=== PATIENT | female | born 1945 | race African-American/Black ===

== ENCOUNTER 2017-03-14 05:34 | Inpatient (IN) | payer OTHER ==
[2017-03-05 12:29] LABS: BASOPHILS 0.2 %; BASOPHILS ABSOLUTE 0.01 10/3/uL (0.0-0.16); EOSINOPHILS 1.2 %; EOSINOPHILS ABSOLUTE 0.05 10/3/uL (0.0-0.53); HEMATOCRIT 37.7 % (36.0-48.0); HEMOGLOBIN 12.1 g/dL (12.0-16.0); LYMPHOCYTES 35.4 %; LYMPHOCYTES ABSOLUTE 1.51 10/3/uL (0.67-4.30); MEAN CORPUS HGB CONC 32.1 g/dL (32.0-36.0); MEAN CORPUSCULAR HEMOGLOB 29.5 pg (26.0-34.0); MEAN PLATELET VOLUME 11.3 fL (9.2-13.0); MONOCYTES 5.4 %; MONOCYTES ABSOLUTE 0.23 10/3/uL (0.21-1.20); NEUTROPHILS 57.8 %; NEUTROPHILS ABSOLUTE 2.47 10/3/uL (2.02-8.40); PLATELET COUNT 235 10/3/uL (150-400); RBC DISTRIBUTION WIDTH 14.9 % (12.0-16.0); WHITE BLOOD CELLS 4.3 10/3/uL (4.5-10.5)
[2017-03-05 12:30] LABS: MANUAL DIFF NO %
[2017-03-05 12:35] LABS: PARTIAL THROMBO TIME 27.2 SEC (22.5-37.2); PROTIME (NOT ORD) 13.5 SEC (12.0-14.5)
[2017-03-05 12:46] LABS: A/G RATIO 1.3 (0.7-1.9); ALBUMIN 3.8 G/DL (3.5-5.0); ALKALINE PHOSPHATASE 75 U/L (45-117); BUN (BLOOD UREA NITROGEN) 17 MG/DL (6-23); CALCIUM, SERUM 9.5 MG/DL (8.5-10.4); CHLORIDE, SERUM 108 MMOL/L (96-112); CO2 (CARBON DIOXIDE) 29 MMOL/L (24-34); CREATININE 1.06 MG/DL (0.55-1.02); GFR AFRICAN AMERICAN 62 ML/MIN (>=60); GFR NON AFRICAN AMERICAN 54 ML/MIN (>=60); GLUCOSE, SERUM 94 MG/DL (60-99); POTASSIUM, SERUM 3.2 MMOL/L (3.5-5.3); SGOT(AST) 11 U/L (5-40); SGPT(ALT) 14 U/L (5-65); SODIUM, SERUM 145 MMOL/L (135-148); TOTAL BILIRUBIN 0.3 MG/DL (0-1.2); TOTAL PROTEIN 6.8 G/DL (6.0-8.5)
--- NOTE | ~2017-03-14 | CN ---
Consultation Report [facility] [address] [place]. [address] NAME: SUMEET CASTRO : 49 STATUS : ADM IN PAT#: [id number] AGE: 71 ADM/REG DATE : 03/14/17 MR#: [id number] REPORT SERV DATE: 03/22/17 DICTATED BY: NOÉ WRIGHT DATE: 03/21/17 REPORT STATUS : Draft TRANSCRIBED BY: MODL DATE: 03/21/17 DATE OF CONSULTATION: 03/21/2017 REASON FOR CONSULTATION: Pancreatic cancer. HISTORY: Ms. 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 She was then taken to pancreaticoduodenectomy (Whipple resection) on 03/14/2017, which was done without complication. She has been having some postoperative fever and postoperative fluid being evaluated by Infectious Disease at this time. Her pathology revealed branch duct-type intraductal papillary mucinous neoplasm, which measured 3.5 cm with a 1.1 cm area of invasive ductal carcinoma. The tumor was well differentiated with negative surgical margin (closest margin 2 mm posteriorly). Ten regional lymph nodes were resected with the specimen and all were negative for carcinoma. Stomach revealed evidence of H pylori gastritis. 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 PAST MEDICAL AND SURGICAL HISTORY: Significant for type 2 diabetes for greater than 20 years. She has had prior hysterectomy, lumpectomy, and rectal lesion excised, which was benign. She has a history of hypertrophic cardiomyopathy with normal left ventricular ejection fraction, hypertension, obesity, and hyperlipidemia. MEDICATIONS: As per medication sheet. ALLERGIES: SHE HAS NO KNOWN DRUG ALLERGIES. SOCIAL HISTORY: She lives in [place], [place]. She is retired. Denies any cigarette smoking in the last 20 years. No alcohol or drug use. No history of pancreatitis. FAMILY HISTORY: Negative for pancreatic cancer. REVIEW OF SYSTEMS: A 13-point review of systems as per HPI. No weight loss prior to surgery. No fever prior to surgery. PHYSICAL EXAMINATION: VITAL SIGNS: Currently afebrile, but T-max 101.3. GENERAL: She is alert, in no acute distress. HEENT: Sclerae anicteric and no jaundice. NECK: No JVD or adenopathy. HEART: Regular rate and rhythm. LUNGS: Clear to auscultation anteriorly. ABDOMEN: Obese. Active bowel sounds. Mild generalized tenderness. No palpable organomegaly. No rebound tenderness. Consultation Report [facility] [id number] [place]. [address] NAME: SUMEET CASTRO : 47 STATUS : ADM IN [facility]#: [id number] AGE: 71 ADM/REG DATE : 03/14/17 MR#: [id number] REPORT SERV DATE: 03/22/17 DICTATED BY: NOÉ WRIGHT DATE: 03/21/17 REPORT STATUS : Draft TRANSCRIBED BY: MALENA DATE: 03/21/17 EXTREMITIES: Without cyanosis, clubbing, or edema. LYMPH NODE SURVEY: Without palpable adenopathy. NEUROLOGIC: Grossly intact. The patient is lying in bed. SKIN: Without jaundice, rash, petechiae, or purpura. LABORATORY DATA: Reviewed. Recent blood cultures: One of two positive for yeast. Infectious Disease solar consultant now following the patient regarding fever. CT scan revealing some postoperative fluid near the surgical site. IMPRESSION: Ms. Castro is a lady with stage I pancreatic cancer, well-differentiated, now post Whipple resection and slowly recovering with febrile complication, possibly active with postop infection. I explained the patient that the patient's of all stages with pancreatic cancer successfully surgically operated are recommended to receive postoperative adjuvant chemotherapy. Her prognosis will be better than average given the well-differentiated tumor. I explained that chemotherapy would be given by vein and by mouth for about six months. She lives in [place], [place] and it would be very difficult for her to try to manage chemotherapy here in [place] and I would recommend when she is discharged that she be referred to a medical oncologist in [place], [place] for discussion of adjuvant chemotherapy. Clearly, no indication of starting adjuvant chemotherapy until after she has full recovery from her surgery and is seen on an outpatient basis. I will plan to be available p.r.n. in the future. MIKAELA/MALENA Noé Wright M.D. / [id number] CC: Justyn Miramontes MD
--- NOTE | ~2017-03-14 | CN ---
Consultation Report [facility] [address] [place]. [address] NAME: SUMEET CARSON : 47 STATUS : ADM IN PAT#: [id number] AGE: 71 ADM/REG DATE : 03/14/17 MR#: [id number] REPORT SERV DATE: 03/23/17 DICTATED BY: YVAN GUERRERO DATE: 03/23/17 REPORT STATUS : Draft TRANSCRIBED BY: MODL DATE: 03/23/17 DATE OF CONSULTATION: REASON FOR CONSULTATION: Acute kidney injury. HISTORY OF PRESENT ILLNESS: This is a very pleasant 71-year-old female patient, who was admitted to Dr. Miramontes's Service. The patient underwent a Whipple procedure on 03/14/2017, for a noted main duct intraductal papillary mucinous neoplasm. Subsequently, her postoperative hospital course has been complicated. On 03/19/2017, consultation was undertaken to Cardiology for noted elevation in her troponin and the patient was initiated on a Cardizem drip for assistance with heart rate control as well as blood pressure control. She was evaluated by Infectious Disease Services for postoperative fever on 03/20/2017, and she has also been evaluated by Dr. Noé Nam of Hematology/Oncology for planning for outpatient treatment post her inpatient hospital stay. The patient's baseline creatinine appears to be around 0.8 to 1.0 historically. 03/20/2016, her creatinine was at 1.06; 03/21/2017, 1.36; 03/22/2017, 1.49; and today at 1.79. She has one set of blood cultures that is positive for Luiza albicans, and she is noted to be positive for an ileus on her KUB this afternoon and has experienced recent nausea and vomiting over the last 24 hours. She has a procalcitonin that is elevated at 1.98, and her intake and output appears incomplete as the patient states she has had urinary output, but there is none listed as it has not closely been tracked. The patient denies chest pain. No shortness of breath. She is chronically nauseous and has had some emesis within the last 12 hours. She does not chronically use nonsteroidal medications and does not appear to be on an LEONELA inhibitor, ARB, or nonsteroidal medications. However, she currently continues on metformin for assistance with blood sugar control. She is awake and alert and sitting at bedside. Her son is present during medical evaluation this afternoon. PAST MEDICAL HISTORY: Positive for recent Whipple procedure as listed in HPI, now admitted to Dr. Justyn Miramontes. History is also positive for postoperative elevation in temperature, postoperative elevation in troponin prompting other referrals as above. Remainder of her history is positive for acute kidney injury with baseline creatinine at 0.8 to 1.0. Remainder of her history is positive for hypertrophic cardiomyopathy, long-standing hypertension, diabetes mellitus, obesity, and hyperlipidemia. REVIEW OF SYSTEMS: Completed. Please see [facility] for pertinent details. SOCIAL HISTORY: Remote history of tobacco use. No EtOH. No illicit drugs. No current tobacco use. She lives in [place], [place]. Retired. 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 FAMILY HISTORY: Negative for chronic or end-stage renal disease. HOME MEDICATIONS: Include the following: Albuterol two puffs inhaled q.6 hours p.r.n., ASA 81 mg daily, Cardura 4 mg p.o. b.i.d., fenofibrate 120 mg daily, Lasix 20 mg daily, Consultation Report [address] [place]. [address] NAME: SUMEET CARSON : 49 STATUS : ADM IN [facility]#: [id number] AGE: 71 ADM/REG DATE : 03/14/17 MR#: [id number] REPORT SERV DATE: 03/23/17 DICTATED BY: YVAN GUERRERO DATE: 03/23/17 REPORT STATUS : Draft TRANSCRIBED BY: MALENA DATE: 03/23/17 Neurontin 600 mg p.o. b.i.d., Lantus 10 units subcu a.m. and at bedtime, metformin 1000 mg p.o. daily, multivitamin one tab p.o. daily, Ditropan 5 mg p.o. b.i.d., Paxil 20 mg p.o. daily, Pravachol 40 mg p.o. at bedtime, Zantac 150 mg p.o. b.i.d., verapamil 240 mg p.o. daily. PHYSICAL EXAMINATION: VITAL SIGNS: Blood pressure 113/61, temperature 97.1, respiratory rate is 17, heart rate is 87 beats per minute and regular. She is on 2 L and 96%. GENERAL: She is an awake, alert, oriented female patient, sitting at bedside during evaluation. HEENT: Normocephalic and atraumatic. Normal ocular movements. No scleral icterus. No conjunctival pallor is appreciated. NECK: Supple without thyromegaly. No JVD or mass. CHEST: Positive S1 and S2. No rubs or gallops. LUNGS: Diminished but normal expansion and effort bilaterally with no rhonchi or wheezes noted on auscultation. GI: Minimal activity as far as bowel sounds. No overt mass or tenderness is noted. A direct visual examination of her surgical site was not undertaken as the patient is bedside and wrapped in blankets. : Deferred. EXTREMITIES: Positive pulses. No clubbing, cyanosis, or edema. NEUROLOGIC: She appears to be grossly intact. SKIN: Warm, dry, and intact to visualized surfaces. No rash, lesions, or ecchymosis. Again, no direct examination of her surgical site is undertaken as she is sitting at bedside and she is of appropriate mood and affect. LABORATORY DATA: Pertinent laboratories and imaging to this evaluation are as follows. One positive blood culture collected on 03/19/2017, reported positive for Luiza albicans. Ileus is noted on KUB this afternoon. Comprehensive metabolic panel: Procalcitonin 1.98, sodium 138, potassium 4.2, chloride 111, CO2 of 18, BUN 28, creatinine 1.76, reflected GFR 34 mL/minute, glucose of 119, calcium 8.3, total protein 5.2, albumin 1.5, globulin 3.7, alk phos 230, ALT and AST 110 and 80 respectively. CBC: White blood cell count of 15.4, RBC 2.54, hemoglobin of 10.4, hematocrit 32.4, platelets at 334. CT of the abdomen and pelvis with contrast on 03/20/2017, identifies nonspecific fluid collection subadjacent to choledochojejunostomy, could represent a seroma, hematoma, or loculated ascites with abscess not being excluded. IMPRESSION AND PLAN: This is a very pleasant 71-year-old female patient, now admitted to Dr. Justyn Miramontes's service. Baseline creatinine appears to be 8.8 to 1.0 with a steady rise in serum creatinine, rising from 03/20/2017, to current level at 1.79 on 03/23/2017. She has had a complicated postoperative course as reflected in her HPI and has now developed nausea and vomiting with an ileus with concomitant positive blood cultures and a postoperative fever with known Whipple procedure as listed above. She continues currently on metformin. I see no other nephrotoxic medications. She did receive contrast on 03/20/2017, for her initial CT imaging. Does not appear she has received any nonsteroidal Consultation Report [facility] [address] [place]. [address] NAME: SUMEET CARSON : 47 STATUS : ADM IN PAT#: [id number] AGE: 71 ADM/REG DATE : 03/14/17 MR#: [id number] REPORT SERV DATE: 03/23/17 DICTATED BY: YVAN GUERRERO DATE: 03/23/17 REPORT STATUS : Draft TRANSCRIBED BY: MALENA DATE: 03/23/17 medications or chronically uses them at home. Her urinary output is said to be reasonable, but is not reflected in the current medical record as it has not closely been followed by the nursing staff. She is somewhat acidotic and her creatinine is elevated. I suspect in review of her current medical records and current inter and postoperative surgical records, that she has suffered an acute tubular necrosis injury secondary to inter and postoperative relative hypotension, plus or minus sepsis, acute tubular necrosis plus or minus volume contraction with recent nausea and vomiting. We will remove metformin. Diuretics appear to have already been removed, but if they are not, would also remove them. No LEONELA inhibitors. No ARB. No nonsteroidal medications. Initiate a quarter normal saline, two amps of bicarb, 75 mL an hour. She has had a recent echocardiogram with an ejection fraction visually estimated at 70%, calculated at 61% with left ventricular diastolic dysfunction with mild left atrial enlargement, moderate concentric left ventricular hypertrophy without significant valvular disease. We will place a quarter normal saline at 100 mL/h. Watch her volume status closely and monitor her laboratories. I suspect that she will be made n.p.o. in light of her ileus that is found this afternoon on her abdominal x-ray in an effort to give her gut some time to rest. We will also complete workup with urinalysis, urine sodium, urine creatinine, and urine urea. Renal ultrasound to examine her renal anatomy. Check postvoid residual to ensure no evidence of urinary retention. Place Claudio catheter should clinical indication be present for need of Claudio catheter for bladder relief. Further modification of treatment plan may be made based on clinical presentation, patient laboratory results, further consultation with renal attending. We appreciate consultation. We are glad to follow this patient with you. DICTATED BY: Kain Mcbride NP JR/MALENA Yvan Guerrero M.D. / [id number] CC: Justyn Miramontes MD
--- NOTE | ~2017-03-14 | CN ---
Consultation Report [facility] [address] [place]. [address] NAME: SUMEET CARSON : 47 STATUS : ADM IN PAT#: [id number] AGE: 71 ADM/REG DATE : 03/14/17 MR#: [id number] REPORT SERV DATE: 03/18/17 DICTATED BY: DATE: REPORT STATUS : Draft TRANSCRIBED BY: MODL DATE: 03/18/17 CONSULTATION DATE OF CONSULTATION: 03/18/2017 REASON FOR CONSULTATION: Hypertension. REQUESTING PHYSICIAN: Dr. Pringle. IDENTIFYING DATA: PRIMARY CARE PHYSICIAN: [facility] [place]. CARDIOVASCULAR: Dr. Alvarez in [place]. HISTORY OF PRESENT ILLNESS: This is a very pleasant 71-year-old black female, who was admitted for a Whipple procedure due to a mass on the head of her pancreas that was consistent with main duct IPMN. She is postop day 5. The patient has a longstanding history of hypertension, and we have been consulted for this problem. The patient does use doxazosin, Lasix, and verapamil at home to manage her hypertension. The patient is currently n.p.o. and we have been asked to assist with this. The patient's history was obtained through careful interview with the patient, her son, coupled with review in [facility] and [employer]. 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 HOME MEDICATIONS: Albuterol two puffs every 6 hours as needed, aspirin 81 mg daily, Cardura 4 mg twice daily, fenofibrate 120 mg daily, Lasix 20 mg daily, gabapentin 600 mg twice daily, Lantus 10 units in the morning and in the evening, Glucophage 1000 mg with breakfast and supper, multivitamin tablet daily, Ditropan 5 mg twice daily, Paxil 20 mg daily, Pravachol 40 mg daily, Zantac 150 mg twice daily, Isoptin 240 mg twice daily. ALLERGIES: THE PATIENT HAS NO KNOWN DRUG ALLERGIES. SOCIAL HISTORY: The patient lives with her son and has other family living close by. 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 She has a remote tobacco history in which she stopped over 40 years ago, occasional alcohol use of wine once or twice every six months, denies illicit drug use. The patient does not have routine exercise. FAMILY HISTORY: The patient's brother had colon cancer. Mother had CVA and hypertension and father had diabetes mellitus type 1. Consultation Report [facility] [address] [place]. [address] NAME: SUMEET CARSON : 47 STATUS : ADM IN PAT#: [id number] AGE: 71 ADM/REG DATE : 03/14/17 MR#: [id number] REPORT SERV DATE: 03/18/17 DICTATED BY: DATE: REPORT STATUS : Draft TRANSCRIBED BY: MODL DATE: 03/18/17 SURGICAL HISTORY: Hysterectomy in , tubal in 1974, left breast lumpectomy which was benign in 2016, colonoscopy and removal of mass in 01/2017, esophageal ultrasound in 11/2016. REVIEW OF SYSTEMS: 10-point review of systems is negative other than HPI. The patient is having severe nausea with emesis. Denies pain at present due to extreme nauseated state. The patient just had NG tube placed for which 4 L of fluid were drained. PHYSICAL EXAMINATION: VITAL SIGNS: Blood pressure is 159/77, heart rate is 114, temp is 97.5, respirations are 18, O2 saturation is 93% on room air. GENERAL: Obese black female, resting in bed, ill appearing. NEURO: Head is atraumatic, normocephalic. The patient is alert and oriented x3, cranial nerves 2 through 12 are grossly intact. NECK: Supple with trachea midline. Neck veins are flat. No obvious thyromegaly or lymphadenopathy. EENT: Sclerae are nonicteric, pupils are equal, round, and reactive to light, extraocular muscles within normal limits. Mucous membranes are moist, nares are patent. Tongue is midline without deviation. CHEST: No pain with palpation. LUNGS: The patient is taking shallow respirations and breath sounds are decreased in the bases. CARDIOVASCULAR: S1 and S2 with no obvious murmurs, rubs, or gallops. Carotids with no obvious bruits. The patient is in tachycardic rhythm. ABDOMEN: Soft and tender. Has rare tympanic bowel sounds. Did not palpate due to extensive incisions and drains. Has a CHRISS drain with large amounts of serosanguineous fluid. EXTREMITIES: Mild bilateral lower extremity nonpitting edema. No clubbing or cyanosis noted. Pedal pulses are present equal bilaterally. SKIN: Warm and moist, no unusual rashes or skin lesions. Normal color and turgor. PSYCH: The patient is anxious and cooperative. LABORATORY DATA: No laboratory data has been drawn today. Labs from 03/17/2017: Sodium was 142, potassium was 3.8, chloride was 109, BUN was 10, creatinine was 0.83, GFR was 83, glucose was 139. Calcium was 8.4, magnesium was 1.8, phosphorus was 2.0. WBC was 8.4, hemoglobin 11.5, hematocrit 35.1, and platelets 242. ASSESSMENT AND PLAN: 1. Hypertension, acute on chronic. The patient is on Cardura and verapamil p.o. as well as metoprolol 5 mg IV q.6 hours. The patient has just been placed n.p.o. The patient's medication regimen has been discussed with Dr. Toribio Bailon. The patient has been placed on scheduled hydralazine as well as p.r.n. hydralazine and the patient will remain on her IV metoprolol. We will consider clonidine patch if the patient's blood pressure is unable to remain controlled. Consultation Report [address] [place]. [address] NAME: SUMEET CARSON : 49 STATUS : ADM IN [facility]#: [id number] AGE: 71 ADM/REG DATE : 03/14/17 MR#: [id number] REPORT SERV DATE: 03/18/17 DICTATED BY: DATE: REPORT STATUS : Draft TRANSCRIBED BY: MODJustin DATE: 03/18/17 2. Diabetes mellitus type 2. The patient is on Lantus insulin and metformin at home. The patient's blood sugars have been well controlled while she has been here with the custom sliding scale that has been provided per surgery. 3. Pancreatic mass. The patient is postop day 5 with a Whipple. 4. Nausea and vomiting. Surgery has ordered NG tube for patient's extensive nausea and vomiting, so the patient is now n.p.o. 4 L was obtained in 10 minutes per NG tube and intermittent suction. We have ordered BMP and Mag to be drawn at 1500 hours and electrolytes to be replaced per electrolyte protocol and notification of GI of the results. 5. Asthma. The patient has p.r.n. nebulizers. We are requesting respiratory therapy to give albuterol treatments on a regular basis until patient is able to ambulate. We would like to take the time to thank you for this consultation. We will continue to follow the patient with you until it is time for her to be discharged. Please let us know if we can be of any further service. SLC/MODL Sadaf Lane NP / [id number] CC: Justyn Miramontes MD
--- NOTE | ~2017-03-14 | OP ---
Record Of Operation [facility] [address] [place]. [address] NAME: SUMEET CARSON : 49 STATUS : ADM IN [facility]#: [id number] AGE: 71 ADM/REG DATE : 03/14/17 MR#: [id number] REPORT SERV DATE: 03/14/17 DICTATED BY: AICHA ROSA DATE: 03/14/17 REPORT STATUS : Draft TRANSCRIBED BY: MODL DATE: 03/14/17 DATE OF PROCEDURE: 03/14/2017 SERVICE: General Surgery. ATTENDING SURGEON: Aicha Rosa M.D., present and scrubbed throughout. PREOPERATIVE DIAGNOSIS: Main duct intraductal papillary mucinous neoplasms. POSTOPERATIVE DIAGNOSIS: Main duct intraductal papillary mucinous neoplasms. PROCEDURE: 1. Pancreaticoduodenectomy. 2. Omental pedicle flap. ANESTHESIA: General endotracheal. ESTIMATED BLOOD LOSS: 100 mL. COMPLICATION: None. SPECIMEN: As above. BRIEF HISTORY: The patient is a very pleasant, 71-year-old, female, who was found to have a 2 cm mass in the head of the pancreas that was worked up and found to be consistent with main duct IPMN. The risks, benefits, and alternatives to resection were explained to the patient in detail. The risks include but not limited to bleeding infection, reoperation, injury to surrounding structures, reactions to anesthetic medications, incisional hernias, perioperative cardiac events, perioperative thromboembolic events, anastomotic leak, and possible . The patient stated clear understanding of all the risks and requested the procedure to be done. DESCRIPTION OF PROCEDURE: After surgical consent was obtained, the patient was transported to the operative theater, onto the operating room table in supine position. General endotracheal anesthesia was administered without difficulty. The patient's abdomen was prepped and draped in standard sterile fashion. Antibiotics were given. A time-out was performed in order to ensure the proper patient and procedure . An incision was made to the upper midline using a scalpel and underlying tissues were divided using electrocautery. The falciform ligament was ligated, divided, and preserved. A Bookwalter device and wound protector were implemented for visualization. The abdomen and liver were inspected for evidence of cancer of which there was none. The gastrocolic ligament was divided using Harmonic Scalpel and the lesser sac was entered. The superior mesenteric vein was identified. A plane was created between the pancreas and the portal vein inferiorly. We then turned our attention to the jerrod hepatis. We divided the gastrohepatic ligament and identified the common hepatic artery. The gastroduodenal artery was elevated and occluded. Occluding this artery did not change blood flow through the common hepatic artery. We then Record Of Operation [facility] [address] [place]. [address] NAME: SUMEET CARSON : 47 STATUS : ADM IN PAT#: [id number] AGE: 71 ADM/REG DATE : 03/14/17 MR#: [id number] REPORT SERV DATE: 03/14/17 DICTATED BY: AICHA ROSA DATE: 03/14/17 REPORT STATUS : Draft TRANSCRIBED BY: MALENA DATE: 03/14/17 doubly ligated and divided the gastroduodenal artery. The portal vein above the pancreas was identified and the plane between the end of the pancreas was connected to the inferior plane and [place] drain was placed. The common bile duct was elevated and divided using electrocautery. The gallbladder was taken off the liver bed using electrocautery. The cystic duct and cystic artery were identified and ligated without difficulty. Prior to dividing any structures, we generously Kocherized the duodenal without difficulty. We divided the left greater omentum on both sides of the stomach and then divided the stomach approximately 1 cm upstream from the pylorus using a ANDREA stapler with a green load. The proximal jejunum and ligament Treitz were identified and then jejunum was divided approximately 20 cm distal to the ligament. The ligament of Treitz and the mesentery of the proximal jejunum were taken down using Harmonic Scalpel. The jejunum was then flipped to the right side of the abdomen along with the duodenum. We then mobilized the uncinate process of the portal vein and in doing so, I preserved the SMA. We divided some branching vessels off the portal vein using clips and the Harmonic Scalpel. The attachments of the uncinate process were divided using the Harmonic Scalpel and the Whipple specimen was removed from the field. The pancreatic and bile duct were marked and showed no evidence of adenocarcinoma. There was what appeared to be a very small islet cell tumor that abutted the margin. We did not feel that she would require any additional resection. At this point, we prepared for reconstruction. We created a hole in the transverse colon mesentery to the right of the middle colic vessels and brought up the jejunum in a retrocolic fashion. We then created an end-to-side two layer pancreaticojejunostomy. The inner layer was done in a torx-ci-hldlrk fashion using interrupted 4-0 PDS sutures. The outer layer was done with 2-0 Ethibond U-stitches with interrupted 3-0 silks. Approximately 10 cm downstream from this, we created an end-to-side hepaticojejunostomy in a wgcd-pp-scmsnq fashion. This was done in a single layer with 4-0 PDS suture. We tacked the jejunum to the transverse colon mesentery and then brought up a loop approximately 45 cm downstream from our biliary anastomosis for gastric jejunostomy. This was created in a stapled voyf-mw-jykh functional end-to-end fashion using a ANDREA 75 stapler. The common enterotomy was closed with TX60B stapler. The greater omentum was then placed over this anastomosis and tacked down to help protect it. We then used the preserved falciform ligament as a vascular omental pedicle flap intact on top our pancreaticojejunostomy using interrupted silk sutures. We placed a 19-Belarusian round Binh drain around our anastomoses. We irrigated out the abdomen with 4 L of sterile saline. There was no additional bleeding and no evidence of bile leakage from our hepaticojejunostomy. This only closed actually the most superior aspect with interrupted #1 Vicryl suture and then running #1 looped PDS. The subcutaneous tissues above the fascia were irrigated out with the pulse lavage system times 2.5 liters and the skin was closed with stapling device. The drain was secured at the skin level with nylon suture and the wounds were dressed in standard fashion. At the end of the procedure the instrument, lap, and needle counts were all correct. The patient was awoke from awoke having tolerated procedure without difficulty and returned to the PACU in stable condition. JIE/MATTHEWL Aicha Rosa MD Record Of Operation [address] [place]. [address] NAME: SUMEET CARSON : 49 STATUS : ADM IN PAT#: [id number] AGE: 71 ADM/REG DATE : 03/14/17 MR#: [id number] REPORT SERV DATE: 03/14/17 DICTATED BY: AICHA ROSA DATE: 03/14/17 REPORT STATUS : Draft TRANSCRIBED BY: MALENA DATE: 03/14/17 / [id number] CC: Aicha Rosa MD
--- NOTE | ~2017-03-14 | CN ---
Consultation Report [facility] [address] [place]. [address] NAME: SUMEET CASTRO : 49 STATUS : ADM IN PAT#: [id number] AGE: 71 ADM/REG DATE : 03/14/17 MR#: [id number] REPORT SERV DATE: 03/19/17 DICTATED BY: DATE: REPORT STATUS : Draft TRANSCRIBED BY: MODL DATE: 03/19/17 CONSULTATION DATE OF CONSULTATION: 03/19/2017 CHIEF COMPLAINT/REASON FOR CONSULT: Elevated cardiac biomarker. PRIMARY ENERGY SALES CONSULTANT: Dr. Villasenor at [facility]. HISTORY OF PRESENT ILLNESS: Mrs. 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 Her postoperative course has most recently been complicated by fevers up to 102.7, and tachycardia, as well as poorly controlled hypertension. For unclear reasons cardiac troponin was checked, as the patient is not having any chest pain or shortness of breath, and cardiac troponin was found to be between 0.44 and 0.68. The patient denies any chest pain or shortness of breath. She has had increased heart rates with adjustment of her antihypertensive medications. Her verapamil was stopped and she was placed on Norvasc and metoprolol with suboptimal blood pressure control and blood pressures up to 155/68. Her urine output has decreased and she has been requiring increased fluid bolus. She has also had severe nausea and vomiting. PAST MEDICAL HISTORY: 1. Hypertrophic cardiomyopathy, with hyperdynamic left ventricular systolic function, and a resting left ventricular outflow tract gradient of 22 mmHg, which increased to 40 mmHg with Valsalva. 2. Longstanding hypertension. 3. Diabetes mellitus. 4. Obesity. 5. Hyperlipidemia. SOCIAL HISTORY: The patient is . She does not smoke, drink, or use extracurricular drugs. FAMILY HISTORY: Significant for a sister with cardiomyopathy. REVIEW OF SYSTEMS: All systems were reviewed and is negative except for dictated in HPI. ALLERGIES: NO KNOWN DRUG ALLERGIES. CURRENT INPATIENT MEDICATIONS: 1. Aspirin 81 mg p.o. daily. 2. Ditropan 5 mg p.o. daily. 3. Glucophage. Consultation Report [facility] [address] [place]. [address] NAME: SUMEET CASTRO : 47 STATUS : ADM IN PAT#: [id number] AGE: 71 ADM/REG DATE : 03/14/17 MR#: [id number] REPORT SERV DATE: 03/19/17 DICTATED BY: DATE: REPORT STATUS : Draft TRANSCRIBED BY: MALENA DATE: 03/19/17 4. Heparin. 5. Lofibra. 6. Lopressor 25 mg p.o. b.i.d. 7. Neurontin 600 mg p.o. twice per day. 8. Norvasc 10 mg p.o. daily. 9. Novolin. 10.Paxil 20 mg p.o. daily. 11.Pepcid. 12.Pravachol 40 mg p.o. daily. 13.Proventil. 14.Theragran. PHYSICAL EXAMINATION: VITAL SIGNS: Temperature T-max 102.7 pulse is ranged between 98 and 120 beats per minute, blood pressures ranged between 137/60 to 173/75. GENERAL: Mrs. Castro is a 71-year-old female. She is in no distress. NECK: No jugular venous distention. I could not appreciate cardiac bruits. HEART: Tachycardic, soft S1 and S2. There is a 3/6 systolic murmur that is best appreciated at the left sternal border. LUNGS: Clear to auscultation in all conway. ABDOMEN: Obese. Bowel sounds are markedly diminished. There are tender in all quadrants. EXTREMITIES: Warm and well perfused. There is no pitting edema. MUSCULOSKELETAL: No clubbing or cyanosis of the digits. LABORATORY DATA: Laboratory results note a hemoglobin of 11.4, hematocrit of 35.8, platelet count of 219. Procalcitonin is 2.4, potassium 4.1, BUN 18, creatinine 1.25, glucose is 153, troponins range between 0.44 and 0.68. The patient has many bacteria noted on UA. Leukocyte esterase and nitrates were negative. IMPRESSION REPORT AND PLAN: 1. Positive troponin likely secondary to demand in the setting of early sepsis. 2. History of hypertrophic obstructive cardiomyopathy via echocardiogram in September 2016. 3. Hypertension, poorly controlled. 4. Diabetes mellitus. 5. History of pancreatic mass, status post resection on 03/14/2017. 6. Obesity. 7. Hyperlipidemia. RECOMMENDATIONS: 1. Check echocardiogram to verify that the patient's left ventricular systolic function is still preserved. 2. We would recommend diltiazem drip for better blood pressure and heart rate control, especially in the setting of her hypertrophic cardiomyopathy. When she is no longer taking an NG tube, we would recommend her home verapamil with up titration. 3. I would increase her baseline dose of metoprolol at this time. Consultation Report [facility] [address] [place]. [address] NAME: SUMEET CASTRO : 47 STATUS : ADM IN PAT#: [id number] AGE: 71 ADM/REG DATE : 03/14/17 MR#: [id number] REPORT SERV DATE: 03/19/17 DICTATED BY: DATE: REPORT STATUS : Draft TRANSCRIBED BY: MODL DATE: 03/19/17 4. We would treat underlying conditions and evaluate and treat sepsis. 5. Additional recommendations pending clinical course. It has been my pleasure to participate in her care. SELENE/MALENA Rosie Dorado M.D. / [id number] CC: Justyn Miramontes MD
--- NOTE | ~2017-03-14 | CN ---
Consultation Report [facility] [address] [place]. [address] NAME: SUMEET CARSON : 49 STATUS : ADM IN PAT#: [id number] AGE: 71 ADM/REG DATE : 03/14/17 MR#: [id number] REPORT SERV DATE: 03/20/17 DICTATED BY: ARMANDO BREEN DATE: 03/20/17 REPORT STATUS : Draft TRANSCRIBED BY: MODL DATE: 03/20/17 INFECTIOUS DISEASE CONSULTATION DATE OF CONSULTATION: REASON FOR CONSULTATION: Fever. HISTORY OF PRESENT ILLNESS: A 71-year-old lady with past medical history of diabetes, hyperlipidemia, hypertension, hypertrophic cardiomyopathy, asthma, was found to have an intraductal papillary mucinous neoplasm in 11/2016. In December, she had a robotic low anterior resection for benign rectal or sigmoid lesion. This was done at [facility]. The patient states there are no complications after that. She had followups with her surgeon, and according to a note from the 02/20/2017, the patient had no acute complaints. The plan was to do a resection of this pancreas mass. At that time, it looks like she was taking erythromycin and neomycin or at least that was on the list of medications. She was admitted here electively on the 03/14/2017, but there is no antibiotic on this admission list. She had a pancreaticoduodenectomy and hepaticojejunostomy on the 03/14/2017. The patient received Zosyn after the surgery through the 03/19/2017. According to the progress notes, she did okay until 03/18/2017, although the son mentions that she had some confusion postop. On 03/18/2017, the abdomen was distended. She had nausea and vomiting. She was tachycardic, and then later, she developed a high fever up to 103, an NG tube was placed. A Claudio catheter that was just removed the day before was reinserted. Yesterday, she was transferred to ICU. Blood cultures were done and Levaquin was ordered, but it appears was not given. Lab work showed a procalcitonin of 2.4 and creatinine 1.0. Urinalysis with positive urobilinogen and bacteria, but no white blood cells. Chest x-ray with left base effusion/atelectasis. She spiked another fever around midnight last night, but today she feels better and she is afebrile. She had a CT scan of the abdomen and pelvis that shows a small fluid collection at choledochojejunostomy side about 3.2 x 5.3 x 2.8 cm. Also some small pleural effusions and some mild small bowel loop dilatation. REVIEW OF SYSTEMS: She reports occasional cough, but she has asthma. No acute shortness of breath. She does have some incisional abdominal pain. She states that she had some kind of bowel movement yesterday. No vomiting or nausea since the NG tube was inserted. She has a Claudio catheter. No acute joint pains or skin lesions or headaches. PAST MEDICAL HISTORY: As I mentioned above plus hysterectomy, lumpectomy, and a surgery for rectal lesion. Consultation Report [facility] [id number] [place]. [address] NAME: SUMEET CARSON : 49 STATUS : ADM IN [facility]#: [id number] AGE: 71 ADM/REG DATE : 03/14/17 MR#: [id number] REPORT SERV DATE: 03/20/17 DICTATED BY: ARMANDO BREEN DATE: 03/20/17 REPORT STATUS : Draft TRANSCRIBED BY: MALENA DATE: 03/20/17 SOCIAL HISTORY: Remote smoking. She is apparently retired. FAMILY HISTORY: Stroke, diabetes, and hypertension. ALLERGIES: NONE. MEDICATIONS ON ADMISSION: Aspirin, Cardura, fenofibrate, Lasix, gabapentin, insulin, metformin, multivitamin, oxybutynin, Paxil, pravastatin, Zantac, and verapamil extended release. PHYSICAL EXAMINATION: GENERAL: She is alert and awake. She has an NG tube in. HEENT: Oral mucosa with mild erythema. No lesions were seen. LUNGS: With decreased sounds, especially in the bases. No wheezes, rhonchi, or rales. HEART: Regular rhythm. ABDOMEN: With positive bowel sounds, compressible, but nontender to palpation, although she had pain meds. CHRISS drain with small amount of serosanguineous fluid. SKIN: No sacral decubitus that I can see. Feet without lesions. ASSESSMENT AND PLAN: Fever, day four of five post Whipple procedure for pancreatic mucinous neoplasm. A CT scan showed some fluid around the choledochojejunostomy site. The CHRISS drain left from surgery has only small amount of serosanguineous fluid today, had larger output in the last 48 hours. Differential diagnosis would include a postop seroma or hematoma versus an infected fluid collection. She has some bacteria in the urine, but no significant inflammation, so no urine culture was done. She already received Zosyn for about five days and she is actually off antibiotics now. The abdominal distention and vomiting have improved. The CHRISS drainage amount has decreased. The temperature is better today, so far. However, she started running a fever again. Asked to repeat blood cultures and check a CHRISS drainage culture and restart the antibiotic with Zosyn. We will also follow up the liver enzymes and procalcitonin. I discussed with the patient and the nurse. PRERNA/MALENA Armando Breen M.D. / [id number] Consultation Report [address] [place]. [address] NAME: SUMEET CARSON : 49 STATUS : ADM IN [facility]#: [id number] AGE: 71 ADM/REG DATE : 03/14/17 MR#: [id number] REPORT SERV DATE: 03/20/17 DICTATED BY: ARMANDO BREEN DATE: 03/20/17 REPORT STATUS : Draft TRANSCRIBED BY: MALENA DATE: 03/20/17 CC: Justyn Miramontes MD NO PCP
--- NOTE | ~2017-03-14 | DS ---
Discharge Summary [facility] [address] [facility] [place]. [address] NAME: SUMEET CARSON : 49 STATUS : DIS IN PAT#: [id number] AGE: 71 ADM/REG DATE : 03/14/17 MR#: [id number] REPORT SERV DATE: 04/12/17 DICTATED BY: AICHA ROSA DATE: 04/11/17 REPORT STATUS : Draft TRANSCRIBED BY: MODL DATE: 04/11/17 ADMISSION DATE: 03/14/2017 DISCHARGE DATE: 03/30/2017 DIAGNOSIS: Main duct intraductal papillary mucinous neoplasm with adenocarcinoma. PROCEDURE: Whipple. BRIEF HISTORY: The patient is a 71-year-old female who underwent a Whipple for a main duct IPMN at the head of the pancreas. Pathology revealed evidence of adenocarcinoma. HOSPITAL COURSE: Her hospital course was prolonged and complicated by multiple issues including fungemia, acute renal insufficiency, and significant hypertension. The patient was ultimately recovered from these issues and discharged home in a stable condition. DISCHARGE INSTRUCTIONS: The patient is to follow up with me in 2 weeks. The remainder of the discharge instructions can be found on the chart. DICTATED BY: MD JIE Laureano/MALENA Aicha Rosa MD / [id number] CC: Aicha Rosa MD
[~2017-03-14 05:34] MED LIST: ASAB PO; CARDU4 PO; DITRO5 PO; FENOGLIDE120 MG PO; GLUCOPHAGE1000 MG PO; ISOPTIN SR240 MG PO; L20 PO; LANTUS SC; MULTIPLE VIT PO; NEUR600 PO; PAX20 PO; PRAVACHOL40 MG PO; VENTOLIN HFA INH; ZANTAC 150 PO
[2017-03-15 05:33] LABS: BASOPHILS 0 %; EOSINOPHILS 0 %; HEMATOCRIT 36.8 % (36.0-48.0); HEMOGLOBIN 12.2 g/dL (12.0-16.0); IMMATURE GRANULOCYTES 0.2 %; IMMATURE GRANULOCYTES ABSOLUTE 0.02 10/3/uL (0.0-0.11); LYMPHOCYTES 10.1 %; LYMPHOCYTES ABSOLUTE 1.15 10/3/uL (0.67-4.30); MEAN CORPUS HGB CONC 33.2 g/dL (32.0-36.0); MEAN CORPUSCULAR HEMOGLOB 30.4 pg (26.0-34.0); MEAN CORPUSCULAR VOLUME 91.8 fL (80-100); MEAN PLATELET VOLUME 11.1 fL (9.2-13.0); MONOCYTES 7.9 %; NEUTROPHILS 81.8 %; NEUTROPHILS ABSOLUTE 9.27 10/3/uL (2.02-8.40); PLATELET COUNT 247 10/3/uL (150-400); RBC DISTRIBUTION WIDTH 15.4 % (12.0-16.0); RED CELL COUNT 4.01 10/6/uL (4.0-5.6)
[2017-03-15 05:36] LABS: MANUAL DIFF NO %; WHITE BLOOD CELLS 11.3 10/3/uL (4.5-10.5)
[2017-03-15 05:50] LABS: A/G RATIO 0.8 (0.7-1.9); ALBUMIN 2.8 G/DL (3.5-5.0); ALKALINE PHOSPHATASE 50 U/L (45-117); BUN (BLOOD UREA NITROGEN) 16 MG/DL (6-23); CALCIUM, SERUM 8.9 MG/DL (8.5-10.4); CHLORIDE, SERUM 109 MMOL/L (96-112); CO2 (CARBON DIOXIDE) 27 MMOL/L (24-34); CREATININE 1.03 MG/DL (0.55-1.02); GFR AFRICAN AMERICAN 64 ML/MIN (>=60); GFR NON AFRICAN AMERICAN 55 ML/MIN (>=60); GLOBULIN 3.3 G/DL (2.5-4.1); GLUCOSE, SERUM 128 MG/DL (60-99); POTASSIUM, SERUM 3.8 MMOL/L (3.5-5.3); SGOT(AST) 91 U/L (5-40); SGPT(ALT) 110 U/L (5-65); SODIUM, SERUM 143 MMOL/L (135-148); TOTAL BILIRUBIN 0.5 MG/DL (0-1.2); TOTAL PROTEIN 6.1 G/DL (6.0-8.5)
[2017-03-16 04:58] LABS: BASOPHILS 0.2 %; BASOPHILS ABSOLUTE 0.02 10/3/uL (0.0-0.16); EOSINOPHILS 0.1 %; EOSINOPHILS ABSOLUTE 0.01 10/3/uL (0.0-0.53); HEMATOCRIT 38.5 % (36.0-48.0); HEMOGLOBIN 12.2 g/dL (12.0-16.0); IMMATURE GRANULOCYTES 0.2 %; IMMATURE GRANULOCYTES ABSOLUTE 0.02 10/3/uL (0.0-0.11); LYMPHOCYTES 9.9 %; LYMPHOCYTES ABSOLUTE 1.14 10/3/uL (0.67-4.30); MANUAL DIFF NO %; MEAN CORPUS HGB CONC 31.7 g/dL (32.0-36.0); MEAN CORPUSCULAR HEMOGLOB 30.1 pg (26.0-34.0); MEAN CORPUSCULAR VOLUME 95.1 fL (80-100); MONOCYTES 7.6 %; MONOCYTES ABSOLUTE 0.87 10/3/uL (0.21-1.20); PLATELET COUNT 242 10/3/uL (150-400); RBC DISTRIBUTION WIDTH 16.1 % (12.0-16.0); RED CELL COUNT 4.05 10/6/uL (4.0-5.6); WHITE BLOOD CELLS 11.5 10/3/uL (4.5-10.5)
[2017-03-16 05:23] LABS: A/G RATIO 0.7 (0.7-1.9); ALBUMIN 2.4 G/DL (3.5-5.0); ALKALINE PHOSPHATASE 59 U/L (45-117); BUN (BLOOD UREA NITROGEN) 13 MG/DL (6-23); CHLORIDE, SERUM 108 MMOL/L (96-112); CO2 (CARBON DIOXIDE) 23 MMOL/L (24-34); CREATININE 0.88 MG/DL (0.55-1.02); GFR AFRICAN AMERICAN 78 ML/MIN (>=60); GFR NON AFRICAN AMERICAN 67 ML/MIN (>=60); GLOBULIN 3.3 G/DL (2.5-4.1); GLUCOSE, SERUM 131 MG/DL (60-99); POTASSIUM, SERUM 3.9 MMOL/L (3.5-5.3); SGOT(AST) 45 U/L (5-40); SGPT(ALT) 72 U/L (5-65); SODIUM, SERUM 139 MMOL/L (135-148); TOTAL BILIRUBIN 0.7 MG/DL (0-1.2); TOTAL PROTEIN 5.7 G/DL (6.0-8.5)
[2017-03-16 05:24] LABS: PHOSPHORUS, SERUM 1.6 MG/DL (2.5-4.5)
[2017-03-17 05:47] LABS: BASOPHILS 0.2 %; BASOPHILS ABSOLUTE 0.02 10/3/uL (0.0-0.16); EOSINOPHILS 0.6 %; EOSINOPHILS ABSOLUTE 0.05 10/3/uL (0.0-0.53); HEMATOCRIT 35.1 % (36.0-48.0); HEMOGLOBIN 11.5 g/dL (12.0-16.0); IMMATURE GRANULOCYTES 0.2 %; IMMATURE GRANULOCYTES ABSOLUTE 0.02 10/3/uL (0.0-0.11); LYMPHOCYTES 13.3 %; LYMPHOCYTES ABSOLUTE 1.12 10/3/uL (0.67-4.30); MANUAL DIFF NO %; MEAN CORPUS HGB CONC 32.8 g/dL (32.0-36.0); MEAN CORPUSCULAR HEMOGLOB 29.9 pg (26.0-34.0); MEAN CORPUSCULAR VOLUME 91.4 fL (80-100); MEAN PLATELET VOLUME 11.5 fL (9.2-13.0); MONOCYTES 7.7 %; MONOCYTES ABSOLUTE 0.65 10/3/uL (0.21-1.20); NEUTROPHILS ABSOLUTE 6.58 10/3/uL (2.02-8.40); PLATELET COUNT 242 10/3/uL (150-400); RBC DISTRIBUTION WIDTH 15.2 % (12.0-16.0); RED CELL COUNT 3.84 10/6/uL (4.0-5.6); WHITE BLOOD CELLS 8.4 10/3/uL (4.5-10.5)
[2017-03-17 06:07] LABS: BUN (BLOOD UREA NITROGEN) 10 MG/DL (6-23); CALCIUM, SERUM 8.4 MG/DL (8.5-10.4); CHLORIDE, SERUM 109 MMOL/L (96-112); CO2 (CARBON DIOXIDE) 26 MMOL/L (24-34); CREATININE 0.83 MG/DL (0.55-1.02); GFR AFRICAN AMERICAN 83 ML/MIN (>=60); GFR NON AFRICAN AMERICAN 72 ML/MIN (>=60); GLUCOSE, SERUM 139 MG/DL (60-99); POTASSIUM, SERUM 3.8 MMOL/L (3.5-5.3); SODIUM, SERUM 142 MMOL/L (135-148)
[2017-03-18 17:31] LABS: BUN (BLOOD UREA NITROGEN) 13 MG/DL (6-23); CALCIUM, SERUM 9.1 MG/DL (8.5-10.4); CHLORIDE, SERUM 111 MMOL/L (96-112); CO2 (CARBON DIOXIDE) 25 MMOL/L (24-34); CREATININE 1.01 MG/DL (0.55-1.02); GFR AFRICAN AMERICAN 66 ML/MIN (>=60); GFR NON AFRICAN AMERICAN 57 ML/MIN (>=60); GLUCOSE, SERUM 147 MG/DL (60-99); POTASSIUM, SERUM 4.3 MMOL/L (3.5-5.3); SODIUM, SERUM 144 MMOL/L (135-148)
[2017-03-18 21:31] LABS: BUN (BLOOD UREA NITROGEN) 14 MG/DL (6-23); CALCIUM, SERUM 8.7 MG/DL (8.5-10.4); CHLORIDE, SERUM 115 MMOL/L (96-112); CREATININE 1.01 MG/DL (0.55-1.02); GFR AFRICAN AMERICAN 66 ML/MIN (>=60); GFR NON AFRICAN AMERICAN 57 ML/MIN (>=60); GLUCOSE, SERUM 118 MG/DL (60-99); POTASSIUM, SERUM 4.7 MMOL/L (3.5-5.3); SODIUM, SERUM 141 MMOL/L (135-148)
[2017-03-18 21:32] LABS: CO2 (CARBON DIOXIDE) 18 MMOL/L (24-34); TROPONIN I 0.44 NG/ML (<0.05)
[2017-03-19 07:28] LABS: BUN (BLOOD UREA NITROGEN) 18 MG/DL (6-23); CALCIUM, SERUM 8.3 MG/DL (8.5-10.4); CHLORIDE, SERUM 115 MMOL/L (96-112); CO2 (CARBON DIOXIDE) 22 MMOL/L (24-34); CREATININE 1.25 MG/DL (0.55-1.02); GFR AFRICAN AMERICAN 51 ML/MIN (>=60); GFR NON AFRICAN AMERICAN 44 ML/MIN (>=60); GLUCOSE, SERUM 153 MG/DL (60-99); PHOSPHORUS, SERUM 2.9 MG/DL (2.5-4.5); POTASSIUM, SERUM 4.1 MMOL/L (3.5-5.3); SODIUM, SERUM 145 MMOL/L (135-148)
[2017-03-19 07:29] LABS: TROPONIN I 0.67 NG/ML (<0.05)
[2017-03-19 07:29] LABS: HEMATOCRIT 35.8 % (36.0-48.0); HEMOGLOBIN 11.4 g/dL (12.0-16.0); MEAN CORPUS HGB CONC 31.8 g/dL (32.0-36.0); MEAN CORPUSCULAR HEMOGLOB 29.9 pg (26.0-34.0); MEAN PLATELET VOLUME 11.6 fL (9.2-13.0); PLATELET COUNT 219 10/3/uL (150-400); RED CELL COUNT 3.81 10/6/uL (4.0-5.6); WHITE BLOOD CELLS 9.3 10/3/uL (4.5-10.5)
[2017-03-19 07:31] LABS: MANUAL DIFF YES %
[2017-03-19 08:01] LABS: BAND NEUTROPHILS 6 %; LYMPHOCYTES 5 %; LYMPHOCYTES ABSOLUTE (CALC) 0.47 10/3/uL (0.67-4.30); MONOCYTES 3 %; MONOCYTES ABSOLUTE (CALC) 0.28 10/3/uL (0.21-1.20); NEUTROPHILS ABSOLUTE (CALC) 8.56 10/3/uL (2.02-8.40); PLATELET ESTIMATE ADQ (ADEQUATE); RBC MORPHOLOGY NORM (NORMAL); SEGMENTED NEUTROPHIL (0) 86 %; TOTAL NUCLEATED CELLS 100
[2017-03-19 09:17] LABS: DIRECT BILIRUBIN 1.2 MG/DL (0.0-0.4); INDIRECT BILIRUBIN(NOT ORDER) 0.9 MG/DL (0.1-0.9)
[2017-03-19 09:18] LABS: TOTAL BILIRUBIN 2.1 MG/DL (0-1.2)
[2017-03-19 10:05] LABS: TROPONIN I 0.68 NG/ML (<0.05)
[2017-03-19 11:25] LABS: PROCALCITONIN 2.41 ng/mL (<0.5)
[2017-03-19 12:29] LABS: WBC (NOT ORDERED) (RFLEX) 0 (0-5)
[2017-03-19 12:45] LABS: ASCORBIC ACID (UR NOT ORDER) NEG (NEG); BILIRUBIN, URINE SMALL (NEG); KETONE, URINE NEGATIVE (NEG); LEUKOCYTE ESTERASE(NOT OR NEG (NEG)
[2017-03-20 05:55] LABS: BASOPHILS 0.1 %; BASOPHILS ABSOLUTE 0.01 10/3/uL (0.0-0.16); EOSINOPHILS 0.3 %; EOSINOPHILS ABSOLUTE 0.03 10/3/uL (0.0-0.53); HEMATOCRIT 33.6 % (36.0-48.0); HEMOGLOBIN 10.8 g/dL (12.0-16.0); IMMATURE GRANULOCYTES 0.3 %; IMMATURE GRANULOCYTES ABSOLUTE 0.03 10/3/uL (0.0-0.11); LYMPHOCYTES ABSOLUTE 0.45 10/3/uL (0.67-4.30); MEAN CORPUS HGB CONC 32.1 g/dL (32.0-36.0); MEAN CORPUSCULAR HEMOGLOB 29.9 pg (26.0-34.0); MEAN CORPUSCULAR VOLUME 93.1 fL (80-100); MEAN PLATELET VOLUME 11.3 fL (9.2-13.0); MONOCYTES ABSOLUTE 0.63 10/3/uL (0.21-1.20); NEUTROPHILS 87.3 %; NEUTROPHILS ABSOLUTE 7.82 10/3/uL (2.02-8.40); PLATELET COUNT 233 10/3/uL (150-400); RBC DISTRIBUTION WIDTH 16.2 % (12.0-16.0); RED CELL COUNT 3.61 10/6/uL (4.0-5.6)
[2017-03-20 05:56] LABS: MANUAL DIFF NO %
[2017-03-20 06:11] LABS: BUN (BLOOD UREA NITROGEN) 17 MG/DL (6-23); CALCIUM, SERUM 8.6 MG/DL (8.5-10.4); CHLORIDE, SERUM 116 MMOL/L (96-112); CO2 (CARBON DIOXIDE) 22 MMOL/L (24-34); CREATININE 1.06 MG/DL (0.55-1.02); GFR AFRICAN AMERICAN 62 ML/MIN (>=60); GFR NON AFRICAN AMERICAN 54 ML/MIN (>=60); GLUCOSE, SERUM 131 MG/DL (60-99); PHOSPHORUS, SERUM 2.2 MG/DL (2.5-4.5); POTASSIUM, SERUM 3.8 MMOL/L (3.5-5.3); SGOT(AST) 55 U/L (5-40); SGPT(ALT) 74 U/L (5-65); SODIUM, SERUM 145 MMOL/L (135-148); TOTAL PROTEIN 5.4 G/DL (6.0-8.5)
[2017-03-20 06:12] LABS: A/G RATIO 0.5 (0.7-1.9); ALBUMIN 1.8 G/DL (3.5-5.0); ALKALINE PHOSPHATASE 222 U/L (45-117); GLOBULIN 3.6 G/DL (2.5-4.1); TOTAL BILIRUBIN 1.6 MG/DL (0-1.2)
[2017-03-20 11:19] LABS: CPK 175 U/L (0-200)
[2017-03-20 11:20] LABS: CK-MB < 0.5 NG/ML; TROPONIN I 0.42 NG/ML (<0.05)
[2017-03-20 19:40] LABS: ALBUMIN 1.9 G/DL (3.5-5.0); DIRECT BILIRUBIN 1.3 MG/DL (0.0-0.4); INDIRECT BILIRUBIN(NOT ORDER) 0.4 MG/DL (0.1-0.9); TOTAL BILIRUBIN 1.7 MG/DL (0-1.2); TOTAL PROTEIN 5.8 G/DL (6.0-8.5)
[2017-03-21 04:19] LABS: BASOPHILS 0.2 %; BASOPHILS ABSOLUTE 0.02 10/3/uL (0.0-0.16); EOSINOPHILS 0.3 %; EOSINOPHILS ABSOLUTE 0.03 10/3/uL (0.0-0.53); HEMATOCRIT 33.4 % (36.0-48.0); HEMOGLOBIN 10.7 g/dL (12.0-16.0); IMMATURE GRANULOCYTES 0.6 %; IMMATURE GRANULOCYTES ABSOLUTE 0.07 10/3/uL (0.0-0.11); LYMPHOCYTES 5.9 %; LYMPHOCYTES ABSOLUTE 0.65 10/3/uL (0.67-4.30); MEAN CORPUSCULAR HEMOGLOB 29.7 pg (26.0-34.0); MEAN CORPUSCULAR VOLUME 92.8 fL (80-100); MEAN PLATELET VOLUME 11.2 fL (9.2-13.0); MONOCYTES 11.7 %; MONOCYTES ABSOLUTE 1.29 10/3/uL (0.21-1.20); NEUTROPHILS 81.3 %; PLATELET COUNT 248 10/3/uL (150-400); RBC DISTRIBUTION WIDTH 16.3 % (12.0-16.0); WHITE BLOOD CELLS 11.1 10/3/uL (4.5-10.5)
[2017-03-21 04:20] LABS: MANUAL DIFF NO %
[2017-03-21 04:34] LABS: ALBUMIN 1.7 G/DL (3.5-5.0); BUN (BLOOD UREA NITROGEN) 20 MG/DL (6-23); CALCIUM, SERUM 8.3 MG/DL (8.5-10.4); CHLORIDE, SERUM 117 MMOL/L (96-112); CO2 (CARBON DIOXIDE) 22 MMOL/L (24-34); CREATININE 1.26 MG/DL (0.55-1.02); DIRECT BILIRUBIN 1.2 MG/DL (0.0-0.4); GFR AFRICAN AMERICAN 50 ML/MIN (>=60); GFR NON AFRICAN AMERICAN 43 ML/MIN (>=60); GLUCOSE, SERUM 143 MG/DL (60-99); INDIRECT BILIRUBIN(NOT ORDER) 0.4 MG/DL (0.1-0.9); SGOT(AST) 80 U/L (5-40); SGPT(ALT) 91 U/L (5-65); SODIUM, SERUM 146 MMOL/L (135-148); TOTAL BILIRUBIN 1.6 MG/DL (0-1.2); TOTAL PROTEIN 5.3 G/DL (6.0-8.5)
[2017-03-21 04:35] LABS: ALKALINE PHOSPHATASE 224 U/L (45-117)
[2017-03-21 06:13] LABS: PROCALCITONIN 2.09 ng/mL (<0.5)
[2017-03-21 09:12] LABS: HEPATITIS B SURFACE ANTIGEN NON-REACTIVE (NON-REACT)
[2017-03-21 09:13] LABS: HEP B SUR AB QUANTITATIVE < 3.10 mIU/mL (>=10.0)
[2017-03-21 09:17] LABS: HEPATITIS B CORE AB IGM NON-REACTIVE (NON-REAC); HEPATITIS C ANTIBODY NON-REACTIVE (NON-REACT)
[2017-03-21 09:19] LABS: HEP A ANTIBODY IGM NON-REACTIVE (NON-REACT)
[2017-03-22 05:09] LABS: BASOPHILS 0.3 %; BASOPHILS ABSOLUTE 0.04 10/3/uL (0.0-0.16); EOSINOPHILS 0.2 %; EOSINOPHILS ABSOLUTE 0.03 10/3/uL (0.0-0.53); HEMOGLOBIN 11.2 g/dL (12.0-16.0); IMMATURE GRANULOCYTES 0.6 %; IMMATURE GRANULOCYTES ABSOLUTE 0.09 10/3/uL (0.0-0.11); LYMPHOCYTES 6.2 %; MEAN CORPUSCULAR HEMOGLOB 29.3 pg (26.0-34.0); MEAN CORPUSCULAR VOLUME 91.6 fL (80-100); MEAN PLATELET VOLUME 11.8 fL (9.2-13.0); MONOCYTES 9.1 %; MONOCYTES ABSOLUTE 1.31 10/3/uL (0.21-1.20); NEUTROPHILS 83.6 %; NEUTROPHILS ABSOLUTE 12.09 10/3/uL (2.02-8.40); RBC DISTRIBUTION WIDTH 16.5 % (12.0-16.0); RED CELL COUNT 3.82 10/6/uL (4.0-5.6); WHITE BLOOD CELLS 14.5 10/3/uL (4.5-10.5)
[2017-03-22 05:11] LABS: MANUAL DIFF NO %; PLATELET COUNT 340 10/3/uL (150-400)
[2017-03-22 05:19] LABS: A/G RATIO 0.4 (0.7-1.9); ALBUMIN 1.7 G/DL (3.5-5.0); ALKALINE PHOSPHATASE 231 U/L (45-117); BUN (BLOOD UREA NITROGEN) 23 MG/DL (6-23); CALCIUM, SERUM 8.4 MG/DL (8.5-10.4); CHLORIDE, SERUM 114 MMOL/L (96-112); CO2 (CARBON DIOXIDE) 22 MMOL/L (24-34); CREATININE 1.49 MG/DL (0.55-1.02); GFR AFRICAN AMERICAN 41 ML/MIN (>=60); GFR NON AFRICAN AMERICAN 35 ML/MIN (>=60); GLUCOSE, SERUM 165 MG/DL (60-99); POTASSIUM, SERUM 3.9 MMOL/L (3.5-5.3); SGPT(ALT) 97 U/L (5-65); SODIUM, SERUM 140 MMOL/L (135-148); TOTAL PROTEIN 5.7 G/DL (6.0-8.5)
[2017-03-22 05:22] LABS: SGOT(AST) 66 U/L (5-40); TOTAL BILIRUBIN 2.2 MG/DL (0-1.2)
[2017-03-23 05:32] LABS: A/G RATIO 0.4 (0.7-1.9); ALBUMIN 1.5 G/DL (3.5-5.0); ALKALINE PHOSPHATASE 230 U/L (45-117); CALCIUM, SERUM 8.3 MG/DL (8.5-10.4); CHLORIDE, SERUM 111 MMOL/L (96-112); CO2 (CARBON DIOXIDE) 18 MMOL/L (24-34); CREATININE 1.76 MG/DL (0.55-1.02); GFR AFRICAN AMERICAN 34 ML/MIN (>=60); GFR NON AFRICAN AMERICAN 29 ML/MIN (>=60); GLOBULIN 3.7 G/DL (2.5-4.1); POTASSIUM, SERUM 4.2 MMOL/L (3.5-5.3); SGOT(AST) 80 U/L (5-40); SGPT(ALT) 110 U/L (5-65); SODIUM, SERUM 138 MMOL/L (135-148); TOTAL BILIRUBIN 2.1 MG/DL (0-1.2); TOTAL PROTEIN 5.2 G/DL (6.0-8.5)
[2017-03-23 05:33] LABS: BUN (BLOOD UREA NITROGEN) 28 MG/DL (6-23); GLUCOSE, SERUM 119 MG/DL (60-99)
[2017-03-23 05:33] LABS: HEMATOCRIT 32.4 % (36.0-48.0); HEMOGLOBIN 10.4 g/dL (12.0-16.0); MEAN CORPUS HGB CONC 32.1 g/dL (32.0-36.0); MEAN CORPUSCULAR HEMOGLOB 29.4 pg (26.0-34.0); MEAN CORPUSCULAR VOLUME 91.5 fL (80-100); MEAN PLATELET VOLUME 11.6 fL (9.2-13.0); PLATELET COUNT 334 10/3/uL (150-400); RBC DISTRIBUTION WIDTH 16.7 % (12.0-16.0); RED CELL COUNT 3.54 10/6/uL (4.0-5.6); WHITE BLOOD CELLS 15.4 10/3/uL (4.5-10.5)
[2017-03-23 05:36] LABS: MANUAL DIFF YES %
[2017-03-23 06:20] LABS: ANISOCYTOSIS 1+ (5-10/OIF) (0-5/OIF); BAND NEUTROPHILS 4 %; BASOPHILS 1 %; BASOPHILS ABSOLUTE (CALC) 0.15 10/3/uL (0.0-0.16); LYMPHOCYTES 8 %; LYMPHOCYTES ABSOLUTE (CALC) 1.23 10/3/uL (0.67-4.30); MONOCYTES 2 %; MONOCYTES ABSOLUTE (CALC) 0.31 10/3/uL (0.21-1.20); NEUTROPHILS ABSOLUTE (CALC) 13.71 10/3/uL (2.02-8.40); PLATELET ESTIMATE ADQ (ADEQUATE); SEGMENTED NEUTROPHIL (0) 85 %; TOTAL NUCLEATED CELLS 100
[2017-03-23 06:42] LABS: PROCALCITONIN 1.98 ng/mL (<0.5)
[2017-03-24 04:48] LABS: A/G RATIO 0.4 (0.7-1.9); ALBUMIN 1.5 G/DL (3.5-5.0); ALKALINE PHOSPHATASE 292 U/L (45-117); BUN (BLOOD UREA NITROGEN) 37 MG/DL (6-23); CALCIUM, SERUM 8.4 MG/DL (8.5-10.4); CHLORIDE, SERUM 105 MMOL/L (96-112); CO2 (CARBON DIOXIDE) 20 MMOL/L (24-34); GFR AFRICAN AMERICAN 23 ML/MIN (>=60); GFR NON AFRICAN AMERICAN 20 ML/MIN (>=60); GLOBULIN 4.1 G/DL (2.5-4.1); GLUCOSE, SERUM 111 MG/DL (60-99); POTASSIUM, SERUM 3.9 MMOL/L (3.5-5.3); SGOT(AST) 68 U/L (5-40); SGPT(ALT) 103 U/L (5-65); SODIUM, SERUM 136 MMOL/L (135-148); TOTAL BILIRUBIN 3.3 MG/DL (0-1.2); TOTAL PROTEIN 5.6 G/DL (6.0-8.5)
[2017-03-24 04:53] LABS: HEMATOCRIT 32.9 % (36.0-48.0); HEMOGLOBIN 10.7 g/dL (12.0-16.0); MEAN CORPUS HGB CONC 32.5 g/dL (32.0-36.0); MEAN CORPUSCULAR HEMOGLOB 29.3 pg (26.0-34.0); MEAN CORPUSCULAR VOLUME 90.1 fL (80-100); MEAN PLATELET VOLUME 11.8 fL (9.2-13.0); PLATELET COUNT 381 10/3/uL (150-400); RBC DISTRIBUTION WIDTH 16.6 % (12.0-16.0); RED CELL COUNT 3.65 10/6/uL (4.0-5.6); WHITE BLOOD CELLS 15.3 10/3/uL (4.5-10.5)
[2017-03-24 04:57] LABS: MANUAL DIFF YES %
[2017-03-24 07:02] LABS: BAND NEUTROPHILS 7 %; IMMATURE GRANS ABSOLUTE (CALC) 0.15 10/3/uL (0.0-0.11); LYMPHOCYTES 1 %; LYMPHOCYTES ABSOLUTE (CALC) 0.15 10/3/uL (0.67-4.30); METAMYELOCYTES 1 %; MONOCYTES 7 %; MONOCYTES ABSOLUTE (CALC) 1.07 10/3/uL (0.21-1.20); NEUTROPHILS ABSOLUTE (CALC) 13.92 10/3/uL (2.02-8.40); PLATELET ESTIMATE ADQ (ADEQUATE); RBC MORPHOLOGY NORM (NORMAL); SEGMENTED NEUTROPHIL (0) 84 %; TOTAL NUCLEATED CELLS 100
[2017-03-24 18:46] LABS: ASCORBIC ACID (UR NOT ORDER) NEG (NEG); BILIRUBIN, URINE SMALL (NEG); KETONE, URINE NEGATIVE (NEG); LEUKOCYTE ESTERASE(NOT OR SMALL (NEG); WBC (NOT ORDERED) (RFLEX) 34 (0-5)
[2017-03-25 09:18] LABS: CALCIUM, SERUM 8.1 MG/DL (8.5-10.4); CHLORIDE, SERUM 106 MMOL/L (96-112); CO2 (CARBON DIOXIDE) 17 MMOL/L (24-34); GFR AFRICAN AMERICAN 16 ML/MIN (>=60); GFR NON AFRICAN AMERICAN 13 ML/MIN (>=60); GLUCOSE, SERUM 104 MG/DL (60-99); SODIUM, SERUM 137 MMOL/L (135-148)
[2017-03-25 09:19] LABS: BASOPHILS 0.2 %; BASOPHILS ABSOLUTE 0.03 10/3/uL (0.0-0.16); BUN (BLOOD UREA NITROGEN) 53 MG/DL (6-23); CREATININE 3.32 MG/DL (0.55-1.02); EOSINOPHILS 0.7 %; EOSINOPHILS ABSOLUTE 0.11 10/3/uL (0.0-0.53); HEMOGLOBIN 8.8 g/dL (12.0-16.0); IMMATURE GRANULOCYTES 1.4 %; IMMATURE GRANULOCYTES ABSOLUTE 0.22 10/3/uL (0.0-0.11); LYMPHOCYTES 5.4 %; LYMPHOCYTES ABSOLUTE 0.86 10/3/uL (0.67-4.30); MEAN CORPUS HGB CONC 33.3 g/dL (32.0-36.0); MEAN CORPUSCULAR HEMOGLOB 29.4 pg (26.0-34.0); MEAN CORPUSCULAR VOLUME 88.3 fL (80-100); MEAN PLATELET VOLUME 11.4 fL (9.2-13.0); MONOCYTES 4.4 %; MONOCYTES ABSOLUTE 0.71 10/3/uL (0.21-1.20); NEUTROPHILS 87.9 %; NEUTROPHILS ABSOLUTE 14.13 10/3/uL (2.02-8.40); PLATELET COUNT 369 10/3/uL (150-400); POTASSIUM, SERUM 4.3 MMOL/L (3.5-5.3); RBC DISTRIBUTION WIDTH 16.7 % (12.0-16.0); RED CELL COUNT 2.99 10/6/uL (4.0-5.6); WHITE BLOOD CELLS 16.1 10/3/uL (4.5-10.5)
[2017-03-25 09:21] LABS: HEMATOCRIT 26.4 % (36.0-48.0); MANUAL DIFF NO %
[2017-03-26 06:54] LABS: BASOPHILS 0.2 %; BASOPHILS ABSOLUTE 0.03 10/3/uL (0.0-0.16); EOSINOPHILS 0.6 %; EOSINOPHILS ABSOLUTE 0.09 10/3/uL (0.0-0.53); HEMATOCRIT 25.7 % (36.0-48.0); HEMOGLOBIN 8.6 g/dL (12.0-16.0); IMMATURE GRANULOCYTES 1.5 %; IMMATURE GRANULOCYTES ABSOLUTE 0.23 10/3/uL (0.0-0.11); LYMPHOCYTES 4.1 %; LYMPHOCYTES ABSOLUTE 0.63 10/3/uL (0.67-4.30); MEAN CORPUS HGB CONC 33.5 g/dL (32.0-36.0); MEAN CORPUSCULAR HEMOGLOB 29.2 pg (26.0-34.0); MEAN CORPUSCULAR VOLUME 87.1 fL (80-100); MEAN PLATELET VOLUME 10.7 fL (9.2-13.0); MONOCYTES 5.2 %; MONOCYTES ABSOLUTE 0.81 10/3/uL (0.21-1.20); NEUTROPHILS 88.4 %; NEUTROPHILS ABSOLUTE 13.66 10/3/uL (2.02-8.40); PLATELET COUNT 383 10/3/uL (150-400); RBC DISTRIBUTION WIDTH 16.7 % (12.0-16.0); RED CELL COUNT 2.95 10/6/uL (4.0-5.6); WHITE BLOOD CELLS 15.5 10/3/uL (4.5-10.5)
[2017-03-26 07:04] LABS: MANUAL DIFF NO %
[2017-03-26 07:07] LABS: BUN (BLOOD UREA NITROGEN) 56 MG/DL (6-23); CALCIUM, SERUM 8.4 MG/DL (8.5-10.4); CHLORIDE, SERUM 107 MMOL/L (96-112); CREATININE 3.43 MG/DL (0.55-1.02); GFR AFRICAN AMERICAN 15 ML/MIN (>=60); GFR NON AFRICAN AMERICAN 13 ML/MIN (>=60); GLUCOSE, SERUM 112 MG/DL (60-99); SGOT(AST) 28 U/L (5-40); SGPT(ALT) 44 U/L (5-65); SODIUM, SERUM 143 MMOL/L (135-148)
[2017-03-26 07:08] LABS: A/G RATIO 0.5 (0.7-1.9); ALKALINE PHOSPHATASE 143 U/L (45-117); CO2 (CARBON DIOXIDE) 22 MMOL/L (24-34); POTASSIUM, SERUM 3.4 MMOL/L (3.5-5.3); TOTAL BILIRUBIN 2.3 MG/DL (0-1.2)
[2017-03-26 07:54] LABS: PROCALCITONIN 5.71 ng/mL (<0.5)
[2017-03-27 06:27] LABS: BASOPHILS 0.1 %; BASOPHILS ABSOLUTE 0.02 10/3/uL (0.0-0.16); EOSINOPHILS 0.1 %; EOSINOPHILS ABSOLUTE 0.02 10/3/uL (0.0-0.53); HEMATOCRIT 26.8 % (36.0-48.0); HEMOGLOBIN 8.9 g/dL (12.0-16.0); IMMATURE GRANULOCYTES ABSOLUTE 0.15 10/3/uL (0.0-0.11); LYMPHOCYTES 5.4 %; LYMPHOCYTES ABSOLUTE 0.79 10/3/uL (0.67-4.30); MANUAL DIFF NO %; MEAN CORPUS HGB CONC 33.2 g/dL (32.0-36.0); MEAN CORPUSCULAR HEMOGLOB 29.2 pg (26.0-34.0); MEAN CORPUSCULAR VOLUME 87.9 fL (80-100); MEAN PLATELET VOLUME 11.1 fL (9.2-13.0); MONOCYTES ABSOLUTE 0.73 10/3/uL (0.21-1.20); NEUTROPHILS 88.4 %; NEUTROPHILS ABSOLUTE 12.83 10/3/uL (2.02-8.40); PLATELET COUNT 494 10/3/uL (150-400); RBC DISTRIBUTION WIDTH 16.7 % (12.0-16.0); RED CELL COUNT 3.05 10/6/uL (4.0-5.6); WHITE BLOOD CELLS 14.5 10/3/uL (4.5-10.5)
[2017-03-27 06:42] LABS: A/G RATIO 0.5 (0.7-1.9); ALBUMIN 1.9 G/DL (3.5-5.0); BUN (BLOOD UREA NITROGEN) 54 MG/DL (6-23); CALCIUM, SERUM 8.9 MG/DL (8.5-10.4); CHLORIDE, SERUM 109 MMOL/L (96-112); CO2 (CARBON DIOXIDE) 22 MMOL/L (24-34); GFR AFRICAN AMERICAN 17 ML/MIN (>=60); GFR NON AFRICAN AMERICAN 15 ML/MIN (>=60); GLOBULIN 4.2 G/DL (2.5-4.1); POTASSIUM, SERUM 3.2 MMOL/L (3.5-5.3); SGOT(AST) 32 U/L (5-40); SGPT(ALT) 39 U/L (5-65); SODIUM, SERUM 144 MMOL/L (135-148); TOTAL PROTEIN 6.1 G/DL (6.0-8.5)
[2017-03-27 06:46] LABS: ALKALINE PHOSPHATASE 157 U/L (45-117); GLUCOSE, SERUM 136 MG/DL (60-99); PHOSPHORUS, SERUM 4.3 MG/DL (2.5-4.5); TOTAL BILIRUBIN 1.6 MG/DL (0-1.2)
[2017-03-28 04:32] LABS: BASOPHILS 0.2 %; BASOPHILS ABSOLUTE 0.03 10/3/uL (0.0-0.16); EOSINOPHILS 0.4 %; EOSINOPHILS ABSOLUTE 0.05 10/3/uL (0.0-0.53); HEMATOCRIT 28.8 % (36.0-48.0); HEMOGLOBIN 9.6 g/dL (12.0-16.0); IMMATURE GRANULOCYTES ABSOLUTE 0.13 10/3/uL (0.0-0.11); LYMPHOCYTES 6.5 %; LYMPHOCYTES ABSOLUTE 0.83 10/3/uL (0.67-4.30); MEAN CORPUS HGB CONC 33.3 g/dL (32.0-36.0); MEAN CORPUSCULAR HEMOGLOB 29.8 pg (26.0-34.0); MEAN CORPUSCULAR VOLUME 89.4 fL (80-100); MONOCYTES 4.1 %; MONOCYTES ABSOLUTE 0.52 10/3/uL (0.21-1.20); NEUTROPHILS 87.8 %; PLATELET COUNT 537 10/3/uL (150-400); RBC DISTRIBUTION WIDTH 16.8 % (12.0-16.0); RED CELL COUNT 3.22 10/6/uL (4.0-5.6); WHITE BLOOD CELLS 12.8 10/3/uL (4.5-10.5)
[2017-03-28 04:33] LABS: MANUAL DIFF NO %
[2017-03-28 04:51] LABS: ALBUMIN 1.7 G/DL (3.5-5.0); BUN (BLOOD UREA NITROGEN) 45 MG/DL (6-23); CALCIUM, SERUM 8.9 MG/DL (8.5-10.4); CHLORIDE, SERUM 111 MMOL/L (96-112); CO2 (CARBON DIOXIDE) 25 MMOL/L (24-34); CREATININE 2.57 MG/DL (0.55-1.02); GFR AFRICAN AMERICAN 21 ML/MIN (>=60); GFR NON AFRICAN AMERICAN 18 ML/MIN (>=60); GLUCOSE, SERUM 173 MG/DL (60-99); PHOSPHORUS, SERUM 2.9 MG/DL (2.5-4.5); POTASSIUM, SERUM 2.9 MMOL/L (3.5-5.3); SODIUM, SERUM 146 MMOL/L (135-148)
[2017-03-29 04:57] LABS: BASOPHILS 0.3 %; BASOPHILS ABSOLUTE 0.03 10/3/uL (0.0-0.16); EOSINOPHILS 1.1 %; EOSINOPHILS ABSOLUTE 0.11 10/3/uL (0.0-0.53); HEMATOCRIT 27.3 % (36.0-48.0); HEMOGLOBIN 8.9 g/dL (12.0-16.0); LYMPHOCYTES 10.1 %; LYMPHOCYTES ABSOLUTE 1.02 10/3/uL (0.67-4.30); MEAN CORPUS HGB CONC 32.6 g/dL (32.0-36.0); MEAN CORPUSCULAR HEMOGLOB 29.6 pg (26.0-34.0); MEAN CORPUSCULAR VOLUME 90.7 fL (80-100); MEAN PLATELET VOLUME 10.9 fL (9.2-13.0); MONOCYTES 6.3 %; MONOCYTES ABSOLUTE 0.63 10/3/uL (0.21-1.20); NEUTROPHILS 81.2 %; NEUTROPHILS ABSOLUTE 8.16 10/3/uL (2.02-8.40); PLATELET COUNT 491 10/3/uL (150-400); RBC DISTRIBUTION WIDTH 16.9 % (12.0-16.0); RED CELL COUNT 3.01 10/6/uL (4.0-5.6); WHITE BLOOD CELLS 10.1 10/3/uL (4.5-10.5)
[2017-03-29 04:58] LABS: MANUAL DIFF NO %
[2017-03-29 05:05] LABS: ALBUMIN 1.7 G/DL (3.5-5.0); CALCIUM, SERUM 8.3 MG/DL (8.5-10.4); CHLORIDE, SERUM 113 MMOL/L (96-112); CO2 (CARBON DIOXIDE) 24 MMOL/L (24-34); PHOSPHORUS, SERUM 2.3 MG/DL (2.5-4.5); POTASSIUM, SERUM 3.3 MMOL/L (3.5-5.3); SGOT(AST) 35 U/L (5-40); SGPT(ALT) 34 U/L (5-65); SODIUM, SERUM 145 MMOL/L (135-148); TOTAL PROTEIN 5.6 G/DL (6.0-8.5)
[2017-03-29 05:06] LABS: ALKALINE PHOSPHATASE 223 U/L (45-117); BUN (BLOOD UREA NITROGEN) 35 MG/DL (6-23); CREATININE 1.99 MG/DL (0.55-1.02); DIRECT BILIRUBIN 0.5 MG/DL (0.0-0.4); GFR AFRICAN AMERICAN 29 ML/MIN (>=60); GFR NON AFRICAN AMERICAN 25 ML/MIN (>=60); GLUCOSE, SERUM 120 MG/DL (60-99); INDIRECT BILIRUBIN(NOT ORDER) 0.4 MG/DL (0.1-0.9); TOTAL BILIRUBIN 0.9 MG/DL (0-1.2)
[2017-03-30 06:28] LABS: ALBUMIN 1.8 G/DL (3.5-5.0); CALCIUM, SERUM 8.3 MG/DL (8.5-10.4); CHLORIDE, SERUM 113 MMOL/L (96-112); CO2 (CARBON DIOXIDE) 26 MMOL/L (24-34); CREATININE 1.95 MG/DL (0.55-1.02); GFR AFRICAN AMERICAN 30 ML/MIN (>=60); GFR NON AFRICAN AMERICAN 26 ML/MIN (>=60); GLUCOSE, SERUM 119 MG/DL (60-99); POTASSIUM, SERUM 3.6 MMOL/L (3.5-5.3); SODIUM, SERUM 147 MMOL/L (135-148)
[2017-03-30 06:29] LABS: BUN (BLOOD UREA NITROGEN) 30 MG/DL (6-23); PHOSPHORUS, SERUM 3.8 MG/DL (2.5-4.5)
[2017-03-30] MEDS ORDERED: MIRALAX POWDER1 PKT PO (11:35)
[2017-03-30] MEDS ORDERED: LOP50 PO (11:36)
[2017-03-30] MEDS ORDERED: DSS PO (11:36)
[2017-03-30] MEDS ORDERED: ZOFRAN4 PO (11:37)
[2017-03-30] MEDS ORDERED: OXYCOD PO (11:38)
[2017-03-30] MEDS ORDERED: KDUR10 PO (11:52)
[2017-03-30] MEDS ORDERED: FLUCON2 PO (11:53)
== END 2017-03-30 16:00 | disposition home health service (06) | DRG 405 ==
LOC: SDC/OF 05:34 → PACU 12:37 → MIC 14:37 → 5SO 03-17 13:16 → MIC 03-19 19:33 → 5NO 03-21 14:00
PROVIDERS: Colon & Rectal Surgery; Internal Medicine Infectious Disease; Internal Medicine Nephrology; Nurse Practitioner; Nurse Practitioner Family; Registered Nurse; Surgery; Transplant Surgery
PROC: 0F1 Hepatobiliary System and Pancreas, Bypass (ICD-10-PCS; principal; 2017-03-14 07:45)
PROC: 0DUS07Z (ICD-10-PCS; 2017-03-14 07:45)
DX: C25.0 Malignant neoplasm of head of pancreas (principal); B37.7 Candidal sepsis; N17.9 Acute kidney failure, unspecified; I24.8 Other forms of acute ischemic heart disease; I42.1 Obstructive hypertrophic cardiomyopathy; K56.7 Ileus, unspecified; K80.10 Calculus of gallbladder with chronic cholecystitis without obstruction; I97.89 Other postprocedural complications and disorders of the circulatory system, not elsewhere classified; E66.9 Obesity, unspecified; R50.82 Postprocedural fever; R00.0 Tachycardia, unspecified; I10 Essential (primary) hypertension; E11.9 Type 2 diabetes mellitus without complications; E78.5 Hyperlipidemia, unspecified; Z79.82 Long term (current) use of aspirin; Z79.899 Other long term (current) drug therapy; Z79.84 Long term (current) use of oral hypoglycemic drugs; Z68.30 Body mass index [BMI] 30.0-30.9, adult; J45.909 Unspecified asthma, uncomplicated
CPT/HCPCS: 36415; 71010; 74000; 74020; 74177; 76775; 78226; 80048; 80053; 80069; 80074; 80076; 81001; 82247; 82248; 82330; 82550; 82553; 82570; 82962; 83605; 83735; 84100; 84132; 84145; 84300; 84484; 84540; 85025; 85610; 85730; 86706; 86850; 86900; 86901; 86920; 87040; 87070; 87086; 87106; 87150; 87186; 87205; 87641; 88304; 88309; 88331; 88332; 88342; 93005; 94640; 97110-GP; 97161-GP; 97530-GP; A9270-GY; A9537; C8929; J0360; J0456; J0690; J1450; J1885; J1940; J2248; J2250; J2370; J2405; J2543; J2710; J2765; J2795; J3010; J3475; P9047; Q9957; Q9967